=== PATIENT | female | born 1960 | race Caucasian/White ===

== ENCOUNTER → 2023-06-20 09:11 | Outpatient (REF) | payer BC, SELFPAY | LOC: RAD 09:11 | PROVIDERS: ATTENDING PHYSICIAN Specialist; FAMILY PHYSICIAN Family Medicine | DX: N20.0 Calculus of kidney (principal) | CPT/HCPCS: 74018 ==

== ENCOUNTER → 2023-11-10 09:28 | Outpatient (REF) | payer BC, SELFPAY | LOC: RAD 09:28 | PROVIDERS: ATTENDING PHYSICIAN Specialist; FAMILY PHYSICIAN Family Medicine | DX: N20.0 Calculus of kidney (principal) | CPT/HCPCS: 74018 ==

== ENCOUNTER 2023-12-08 06:22 | Day surgery (SDC) | payer BC, SELFPAY ==
[2023-12-04 08:17] VITALS: BMI 26.4
[2023-12-04 08:38] LABS: Hematocrit 43.5 % (37.0-47.0); Hemoglobin 14.7 g/dL (12.0-16.0); Mean Corp Hgb Conc. 33.8 g/dL (33.0-37.0); Mean Corpuscular Hgb 31.5 pg (27.0-31.0); Mean Corpuscular Volume 93.1 fL (81.0-99.0); Mean Platelet Volume 9.3 fL (7.4-10.4); Platelet Count 287 10^3/uL (130-400); Red Blood Cell Count 4.67 10^6/uL (4.20-5.40); Red Cell Dist. Width 11.9 % (11.5-14.5); White Blood Cell Count 5.7 10^3/uL (4.8-10.8)
[2023-12-04 09:09] LABS: Blood Urea Nitrogen 28 mg/dl (7-17); Calcium 10.4 mg/dl (8.4-10.2); Carbon Dioxide 28 mmol/L (22-30); Chloride 101 mmol/L (98-107); Estimated Creatinine Clearance 56 ml/min; Glucose 104 mg/dl (70-99); Potassium 4.1 mmol/L (3.5-5.1); Sodium 141 mmol/L (135-145); eGFR > 60.00
[2023-12-08] VITALS (9 sets, daily range): BP systolic 109–139; BP diastolic 50–68; BMI 26.4
[2023-12-08] MEDS: DILAUDID 0.5 MG IV (09:11)
[2023-12-08] MEDS: Pyridium 200 MG PO (09:14)
--- NOTE | 2023-12-08 09:23 | SUR.PHASEI ---
patient sleeping on arrival - when more alert - c/o right kidney pain,treating for same
[2023-12-08] MEDS: DILAUDID 0.25 MG IV (09:26)
--- NOTE | 2023-12-08 09:57 | SUR.PHASEI ---
0930 - pain lessened; controlled. patient states that she is use to discomfort and pain with stent and discomfort is now tolerable. vss, discharge to [facility]
[2023-12-08] MEDS: MOTRIN 600 MG PO (10:08)
== END 2023-12-08 10:25 | disposition home or self-care (01) ==
LOC: SDS 06:22
PROVIDERS: ATTENDING PHYSICIAN Specialist; FAMILY PHYSICIAN Family Medicine
DX: N20.0 Calculus of kidney (principal)
CPT/HCPCS: 52356; 36415; 74018; 76000; 80048; 85027; 93005; C1894; C2617

== ENCOUNTER → 2024-03-30 11:18 | Outpatient (REF) | payer BC, SELFPAY | LOC: RAD 11:18 | PROVIDERS: ATTENDING PHYSICIAN Specialist; FAMILY PHYSICIAN Family Medicine | DX: N20.0 Calculus of kidney (principal); N39.0 Urinary tract infection, site not specified | CPT/HCPCS: 74018 ==

== ENCOUNTER → 2024-10-16 09:16 | Outpatient (REF) | payer BC, SELFPAY | LOC: RAD 09:16 | PROVIDERS: ATTENDING PHYSICIAN Specialist; FAMILY PHYSICIAN Family Medicine | DX: N20.0 Calculus of kidney (principal); N39.0 Urinary tract infection, site not specified | CPT/HCPCS: 74018 ==